=== PATIENT | female | born 1970 | race Caucasian/White ===

== ENCOUNTER 2017-03-13 08:46 | Day surgery (SDC) | payer OTHER ==
[2017-03-13 09:30] VITALS: RESP 16
[2017-03-13] MEDS ORDERED: LR 1,000 ML IV ONE (09:30)
[2017-03-13] MEDS ORDERED: LIDOCAINE 1% 2 ML INJ ID PRN (09:30)
--- NOTE | 2017-03-13 09:42 | PDANEPAE ---
ANE History of Present Illness abd pain x 6mos ANE Past Medical History - Cardiovascular History Hx Hypertension: No Hx Arrhythmias: No Hx Chest Pain: No Hx Coronary Artery / Peripheral Vascular Disease: No Hx CHF / Valvular Disease: No Hx Palpitations: No - Pulmonary History Hx COPD: No Hx Asthma/Reactive Airway Disease: No Hx Recent Upper Respiratory Infection: No Hx Oxygen in Use at Home: No Hx Sleep Apnea: No Sleep Apnea Screening Result - Last Documented: Negative - Neurologic History Hx Cerebrovascular Accident: No Hx Seizures: No Hx Dementia: No Neurologic History Comment: OCCAS H/As - Endocrine History Hx Diabetes: No - Renal History Hx Renal Disorders: No - Liver History Hx Hepatic Disorders: No - Neurological & Psychiatric Hx Hx Neurological and Psychiatric Disorders: Yes Neurological / Psychiatric History Comment: ANXIETY & DEPRESSION - Cancer History Hx Cancer: No - Congenital Disorder History Hx Congenital Disorders: No - GI History Hx Gastrointestinal Disorders: Yes Gastrointestinal History Comment: STOMACH/ABD PRESSURE & PAIN. NAUSEA - Other Health History Other Health History: NEG - Chronic Pain History Chronic Pain: Yes (ABD PAIN, NECK SPINAL STENOSIS) - Surgical History Prior Surgeries: EGD. BREAST X. APPENDECTOMY ANE Review of Systems Review of Systems: - Exercise capacity Exercise capacity: >=4 METS METS (RN): 4 METS - Systems Gastrointestinal: Reports: abdominal pain, abdominal distention ANE Patient History - Allergies Allergies/Adverse Reactions: No Known Allergies Allergy (Unverified 06/15/09 14:36) - Home Medications Home Medications: Alprazolam 03/06/17 [Last Taken 03/11/17] Herbals/Supplements -Info Only 03/06/17 [Last Taken 03/12/17] Ibuprofen 03/06/17 [Last Taken 03/06/17] Oxycodone HCl 03/06/17 [Last Taken 03/09/17] Pantoprazole Sodium 03/06/17 [Last Taken 03/13/17 05:30] Prozac 10 MG (*) 03/06/17 [Last Taken 03/12/17] Ondansetron Odt 4 mg PO PRN PRN 03/13/17 [Last Taken 03/10/17] - NPO status NPO Status: no food or drink >8 hours NPO Since - Liquids (Date): 03/13/17 NPO Since - Liquids (Time): 07:30 NPO Since - Solids (Date): 03/12/17 NPO Since - Solids (Time): 08:00 - Anes Hx Anes Hx: no prior problems - Smoking Hx Smoking Status: Former smoker Marijuana use: Yes - Alcohol Use Alcohol Use: Occasionally (6/wk) - Family Anes Hx Family Anes Hx: none Family Hx Anesthesia Complications: NEG ANE Labs/Vital Signs - Vital Signs Vital Signs: reviewed preoperatively; see RN documention for details Blood Pressure: 131/80 Heart Rate: 80 Respiratory Rate: 16 O2 Sat (%): 93 Height: 157.48 cm Weight: 71.668 kg ANE Physical Exam - Airway Neck exam: FROM Mallampati Score: Class 2 - Pulmonary Pulmonary: no respiratory distress - Cardiovascular Cardiovascular: regular rate and rhythym - ASA Status ASA Status: II ANE Anesthesia Plan Anesthesia Plan: GA with mask, MAC
[2017-03-13] MEDS ORDERED: MIDAZOLAM 2 MG/2 ML VIAL IVP ONE (09:43)
--- NOTE | 2017-03-13 09:43 | PDGENHP ---
History and Physical - Chief Complaint abd pain - History of Present Illness pleasant 47yr old with recurrent abd pain, diarrhea, and melena History Information - Allergies/Home Medication List Allergies/Adverse Reactions: No Known Allergies Allergy (Unverified 06/15/09 14:36) Home Medications: Alprazolam 03/06/17 [Last Taken 03/11/17] Herbals/Supplements -Info Only 03/06/17 [Last Taken 03/12/17] Ibuprofen 03/06/17 [Last Taken 03/06/17] Oxycodone HCl 03/06/17 [Last Taken 03/09/17] Pantoprazole Sodium 03/06/17 [Last Taken 03/13/17 05:30] Prozac 10 MG (*) 03/06/17 [Last Taken 03/12/17] Ondansetron Odt 4 mg PO PRN PRN 03/13/17 [Last Taken 03/10/17] I have personally reviewed and updated: family history, medical history, social history, surgical history Past Medical History: HCV, hx of IVDU - Past Medical History no pertinent PMH - Surgical History Reports: no pertinent surgical hx - Family History Negative for: cancer - Social History Smoking Status: Former smoker Alcohol Use: Occasionally Drug Use: None Review of Systems Review of Systems: ROS: 10pt was reviewed & negative except for what was stated in HPI & below Physical Exam Physical Exam: Temp Pulse Resp BP Pulse Ox 37.2 C 80 16 131/80 H 93 03/13/17 09:24 03/13/17 09:24 03/13/17 09:24 03/13/17 09:24 03/13/17 09:24 Constitutional: no apparent distress Eyes: PERRL Ears, Nose, Mouth, Throat: moist mucous membranes Cardiovascular: regular rate and rhythym Respiratory: no respiratory distress Gastrointestinal: normoactive bowel sounds Skin: warm Assessment & Plan Assessment: abd pain melena Plan: colonoscopy with anesthesia (poor tolerance of conscious sedation previously)
[2017-03-13] MEDS ORDERED: PROPOFOL/EMULSION 500 MG/50 ML BOTTLE IV ONE (09:45)
[2017-03-13] MEDS ORDERED: LIDOCAINE 2% 5 ML SDV ONE (09:45)
[2017-03-13] MEDS ORDERED: MIDAZOLAM 2 MG/2 ML VIAL ONE (09:46)
[2017-03-13] MEDS ORDERED: NALOXONE HCL 0.4 MG/ML INJ IVP PRN (10:08)
--- NOTE | 2017-03-13 10:08 | POSTANESTH ---
Post Anesthetic Evaluation Cardiovascular Status: Normal, Stable Respiratory Status: Normal, Stable Level of Consciousness/Mental Status: Can Participate in Eval Pain Control: Adequate, Prn Tx Ordered Nausea/Vomiting Control: Adequate, Prn Tx Ordered Complications Possibly Related to Anesthesia: None Noted
--- NOTE | 2017-03-13 10:08 | GIREPORT ---
[facility] - Endoscopy Department Patient Name: Kaylee Zavala Procedure Date: 03/13/2017 8:51 AM Patient Type: Outpatient Attending MD/ ER Physician: Benita Reyes MD Procedure: Colonoscopy Indications: Generalized abdominal pain, Clinically significant diarrhea of unexplai morgan origin Providers: Benita Reyes MD Medicines: Sedation Administered by an Anesthesia Professional Complications: No immediate complications. Description of Procedure: Pre-Anesthesia Assessment: - Prior to the procedure, a History and Physical was performed, and pat ient medications and allergies were reviewed. The patient is competent. The risks and benefits of the procedure and the sedation options and risks were discussed with the patient. All questions were answered and informed co nsent was obtained. Patient identification and proposed procedure were verifi ed by the physician in the pre-procedure area. Mental Status Examination: shannan rt and oriented. Airway Examination: normal oropharyngeal airway and neck mobility. Respiratory Examination: clear to auscultation. CV Examinatio n: normal. Prophylactic Antibiotics: The patient does not require prophyla ctic antibiotics. Prior Anticoagulants: The patient has taken no previous anticoagulant or antiplatelet agents. ASA Grade Assessment: II - A doron ent with mild systemic disease. After reviewing the risks and benefits, the patient was deemed in satisfactory condition to undergo the procedure. The anesthesia plan was to use general anesthesia. Immediately prior to administration of medications, the patient was re-assessed for adequacy to receive sedatives. The heart rate, respiratory rate, oxygen saturations , blood pressure, adequacy of pulmonary ventilation, and response to care were monitored throughout the procedure. The physical status of the patient was re-assessed after the procedure. After obtaining informed consent, the scope was passed under direct vis ion. Throughout the procedure, the patient's blood pressure, pulse, and oxyg en saturations were monitored continuously. The Colonoscope with irrigatio n channel was introduced through the anus and advanced to the terminal il eum. The colonoscopy was performed without difficulty. The patient tolerated the procedure well. The quality of the bowel preparation was good. The ileo cecal valve, appendiceal orifice, and rectum were photographed. Findings: The colon (entire examined portion) appeared normal. Biopsies for histo logy were taken with a cold forceps from the entire colon for evaluation of microscopic colitis. The terminal ileum appeared normal. Biopsies were taken with a cold for ceps for histology. Estimated Blood Loss: Estimated blood loss: none. Post Op Diagnosis: - The entire examined colon is normal. Biopsied. - The examined portion of the ileum was normal. Biopsied. Recommendation: - Written discharge instructions were provided to the patient. - The signs and symptoms of potential delayed complications were discus sed with the patient. - Patient has a contact number available for emergencies. - Return to normal activities tomorrow. - Resume previous diet. - Continue present medications. - Await pathology results. - Repeat colonoscopy in 10 years for screening purposes. Attending Participation: I personally performed the entire procedure. Benita Reyes MD Benita Reyes MD 03/13/2017 10:07:40 AM This report has been signed electronicallyBenita Reyes MD Number of Addenda: 0 Note Initiated On: 03/13/2017 8:51 AM Total Procedure Duration Time 0 hours 9 minutes 41 seconds [email or web address]
[2017-03-13 10:28] VITALS: TEMP 97.5
[2017-03-13 11:35] VITALS: BP 119/67; PULSE 73; O2SAT 92
== END 2017-03-13 11:15 | disposition home or self-care (01) ==
LOC: FSGY 08:46
PROVIDERS: ATTEND Internal Medicine Gastroenterology
DX: R10.9 Unspecified abdominal pain (principal); R19.7 Diarrhea, unspecified; K92.1 Melena; F41.9 Anxiety disorder, unspecified; F32.9 Major depressive disorder, single episode, unspecified; M48.02 Spinal stenosis, cervical region; Z87.891 Personal history of nicotine dependence
CPT/HCPCS: J2250; J2704